=== PATIENT | female | born 1960 | race Caucasian/White ===

== ENCOUNTER 2023-03-20 09:59 | Outpatient (REF) | payer OTHER, SELFPAY | END 2023-03-20 10:00 | disposition home or self-care (01) | LOC: LBN 09:59 | PROVIDERS: Visit Provider Nurse Practitioner Family | DX: N39.0 Urinary tract infection, site not specified (principal); R82.998 Other abnormal findings in urine | CPT/HCPCS: 87086 ==

== ENCOUNTER 2023-07-26 16:07 | Outpatient (REF) | payer OTHER, SELFPAY ==
[2023-07-26 17:06] LABS: Bilirubin Small (Negative); Blood Moderate (Negative); Clarity Cloudy (Clear); Glucose 100 mg/dL (Negative); Ketones Trace mg/dL (Negative); Leukocyte Esterase Large (Negative); Nitrite Positive (Negative); Specific Gravity 1.015 (1.005-1.025)
[2023-07-26 17:17] LABS: Bacteria Many HPF (Negative); C & S Indicated? C&S Done As Ordered; Casts Negative LPF (Negative); Crystals Negative HPF (Negative); Epithelial Cells Few HPF (Negative); Mucus Trace (Negative); WBC >50 HPF (0-5)
== END 2023-07-26 16:08 | disposition home or self-care (01) ==
LOC: NCHCN 16:07
PROVIDERS: Visit Provider Physician Assistant
DX: N39.0 Urinary tract infection, site not specified (principal); R82.998 Other abnormal findings in urine
CPT/HCPCS: 87077; 81003; 81015; 87086; 87186

== ENCOUNTER 2023-12-11 18:33 | Outpatient (REF) | payer OTHER, SELFPAY | END 2023-12-11 18:34 | disposition home or self-care (01) | LOC: LBN 18:33 | PROVIDERS: Visit Provider Nurse Practitioner Family | DX: J02.9 Acute pharyngitis, unspecified (principal) | CPT/HCPCS: 87070 ==

== ENCOUNTER 2025-01-14 17:54 | Outpatient (CLI) | payer MEDICARE, OTHER, SELFPAY ==
--- NOTE | 2025-01-14 14:00 | DI.RAD_ITS ---
Exam(s) XR CHEST 2V PA LATERAL EXAM: XR CHEST 2V PA LATERAL CLINICAL HISTORY: Cough, R05.9, eval pna. TECHNIQUE: 2D digital imaging was performed. COMPARISON: No exams were available for comparison FINDINGS: 2 views: Heart size is normal. The mediastinum is not widened. Lungs clear. There is slightly increased markings lateral aspect of the right upper lobe, possibly m ild infiltrate or atelectasis. No pleural effusions. No pneumothorax. No pulmonary edema. IMPRESSION: Increased markings lateral aspect of the right upper lobe. Possibly atelectasis or possibly early mi ld infiltrate. There are no pleural effusions. DATA REPOSITORY: RADIATION DOSE DELIVERED:
== END 2025-01-14 18:14 ==
LOC: DI 17:54
PROVIDERS: Visit Provider Nurse Practitioner Family
DX: R05.9 Cough, unspecified (principal); R91.8 Other nonspecific abnormal finding of lung field
CPT/HCPCS: 71046